=== PATIENT | female | born 1950 | race African-American/Black ===

== ENCOUNTER → 2021-04-17 | Outpatient (CLI) | payer OTHER ==
[~2021-04-17] MED LIST: AMLODIPINE BESI25 GM; COZAAR100 MG; METFORMIN HCL500 MG
== END | disposition home or self-care (01) ==
LOC: RX STUDY 08:11
PROVIDERS: ATTEND Internal Medicine Gastroenterology
DX: K56.690 Other partial intestinal obstruction (principal); K59.09 Other constipation; C18.9 Malignant neoplasm of colon, unspecified

== ENCOUNTER 2021-07-13 20:19 | Emergency (ER) | payer OTHER ==
[~2021-07-13] VITALS: Ht 154.9 cm; Wt 61.2 kg
[2021-07-13] MEDS ORDERED: ATORVASTATIN CA10 MG (21:19)
== END 2021-07-14 03:24 | disposition home or self-care (01) ==
LOC: ER 20:19
DX: N39.0 Urinary tract infection, site not specified (principal); M43.05 Spondylolysis, thoracolumbar region; M54.89 Other dorsalgia

== ENCOUNTER 2025-06-09 10:41 | Emergency (ER) | payer OTHER ==
[~2025-06-09] VITALS: Ht 165.1 cm; Wt 72.6 kg
[~2025-06-09 10:41] MED LIST changes: +ATORVASTATIN CA10 MG
[2025-06-09] MEDS ORDERED: DOXIL2 MG/1 ML IV (11:49)
[2025-06-09] MEDS ORDERED: NIFEDIPINE 10 MG CAPSULE PO ONE ×2 (12:13→12:15)
[2025-06-09 12:41] LABS: BASO % 0.7 % (0.1-1.2); EOS # 0.13 (0.04-0.54); EOS % 1.8 % (0.7-7.0); LYMPH # 2.74 (1.18-3.74); LYMPH % 37.6 % (19.3-53.1); MEAN PLATELET VOLUME 9.30 fl (9.4-12.4); MONO # 0.58 (0.24-0.82); MONO % 8.0 % (4.7-12.5); NEUT # 3.77 (1.56-6.13); NEUT % 51.8 % (34.0-71.1); RED CELL DISTRIBUTION WIDTH 13.6 % (11.6-14.4)
[2025-06-09 13:10] LABS: ALT/SGPT 25.0 U/L (12-78); AST/SGOT 17.0 U/L (15-37); BILIRUBIN TOTAL 0.34 mg/dL (0.3-1.2); BUN CREA RATIO 18.0 (7.0-25.0); CREATININE SERUM 1.01 mg/dL (0.55-1.02); GFR 53.29; GLOBULINA 3.6 G/DL (2.4-3.5); GLUCOSE FASTING 153.0 mg/dL (65-100); OSMOLALITY SERUM 294.0 MOSM/KG (275-295)
== END 2025-06-09 13:59 | disposition home or self-care (01) ==
LOC: ER 10:42
PROVIDERS: General Practice
DX: I10 Essential (primary) hypertension (principal); R60.0 Localized edema; E11.9 Type 2 diabetes mellitus without complications; Z79.84 Long term (current) use of oral hypoglycemic drugs; Z88.2 Allergy status to sulfonamides

== ENCOUNTER 2025-07-11 09:54 | Emergency (ER) | payer OTHER ==
[~2025-07-11] VITALS: Ht 154.9 cm; Wt 63.5 kg
[~2025-07-11 09:54] MED LIST changes: +DOXIL2 MG/1 ML IV
[2025-07-11] MEDS ORDERED: DEXAMETHASONE SODIUM PHOSPHATE 4 MG/ML VIAL IM STA (10:22)
[2025-07-11] MEDS ORDERED: KETOROLAC TROMETHAMINE 30 MG VIAL IM STA (10:22)
[2025-07-11] MEDS ORDERED: KETOROLAC TROMETHAMINE 30 MG VIAL ONE (10:28)
[2025-07-11] MEDS ORDERED: DEXAMETHASONE SODIUM PHOSPHATE 4 MG/ML VIAL ONE (10:28)
[2025-07-11] MEDS ORDERED: DOLOGESIC-DF 51 EACH PO (13:11)
== END 2025-07-11 13:33 | disposition home or self-care (01) ==
LOC: ER 09:55
DX: M25.511 Pain in right shoulder (principal); M54.2 Cervicalgia; Z88.2 Allergy status to sulfonamides; E11.9 Type 2 diabetes mellitus without complications; Z79.84 Long term (current) use of oral hypoglycemic drugs; I10 Essential (primary) hypertension; M19.90 Unspecified osteoarthritis, unspecified site